=== PATIENT | female | born 1970 | race Two or more races ===

== ENCOUNTER 2018-08-13 08:56 | Outpatient (CLI) | payer OTHER | END 2018-08-13 08:58 | disposition home or self-care (01) | LOC: SONOGRAMA 08:56 | DX: E04.0 Nontoxic diffuse goiter (principal); E04.2 Nontoxic multinodular goiter ==

== ENCOUNTER 2018-11-11 13:54 | Outpatient (CLI) | payer OTHER | END 2018-11-11 14:15 | disposition home or self-care (01) | LOC: MAMO-SONO 13:54 | DX: Z12.31 Encounter for screening mammogram for malignant neoplasm of breast (principal) ==

== ENCOUNTER 2019-07-08 08:46 | Outpatient (CLI) | payer OTHER | END 2019-07-08 09:06 | disposition home or self-care (01) | LOC: MAMO-SONO 08:46 | DX: R10.84 Generalized abdominal pain (principal); N60.11 Diffuse cystic mastopathy of right breast ==

== ENCOUNTER 2020-06-01 08:52 | Outpatient (CLI) | payer OTHER | END 2020-06-01 10:23 | disposition home or self-care (01) | LOC: MAMO-SONO 08:52 | PROVIDERS: ATTEND Internal Medicine Hematology & Oncology | DX: N60.02 Solitary cyst of left breast (principal); C82.59 Diffuse follicle center lymphoma, extranodal and solid organ sites ==

== ENCOUNTER 2020-06-04 07:13 | Outpatient (CLI) | payer OTHER | END 2020-06-04 07:29 | disposition home or self-care (01) | LOC: SONOGRAMA 07:13 | PROVIDERS: ATTEND Obstetrics & Gynecology | DX: R10.2 Pelvic and perineal pain (principal) ==

== ENCOUNTER 2020-12-28 07:36 | Outpatient (CLI) | payer OTHER | END 2020-12-28 07:59 | disposition home or self-care (01) | LOC: RAD 07:36 | PROVIDERS: ATTEND Internal Medicine Endocrinology, Diabetes & Metabolism | DX: R05 Cough (principal) ==

== ENCOUNTER 2021-07-16 07:33 | Outpatient (CLI) | payer OTHER | END 2021-07-16 07:51 | disposition home or self-care (01) | LOC: MAMO-SONO 07:33 | PROVIDERS: ATTEND Internal Medicine Hematology & Oncology | DX: C82.59 Diffuse follicle center lymphoma, extranodal and solid organ sites (principal) ==

== ENCOUNTER 2021-12-17 09:13 | Outpatient (CLI) | payer OTHER | END 2021-12-17 09:15 | disposition home or self-care (01) | LOC: TOM 09:13 | PROVIDERS: ATTEND Internal Medicine Endocrinology, Diabetes & Metabolism | DX: N84.0 Polyp of corpus uteri (principal); D28.2 Benign neoplasm of uterine tubes and ligaments ==

== ENCOUNTER 2022-08-05 08:03 | Outpatient (CLI) | payer OTHER | END 2022-08-05 08:11 | disposition home or self-care (01) | LOC: MAMO-SONO 08:03 | PROVIDERS: ATTEND Internal Medicine Hematology & Oncology | DX: C82.59 Diffuse follicle center lymphoma, extranodal and solid organ sites (principal) ==

== ENCOUNTER 2022-09-09 13:00 | Outpatient (CLI) | payer OTHER | END 2022-09-09 13:11 | disposition home or self-care (01) | LOC: NUCLEAR 13:00 | PROVIDERS: ATTEND Internal Medicine Endocrinology, Diabetes & Metabolism | DX: M81.0 Age-related osteoporosis without current pathological fracture (principal); E04.9 Nontoxic goiter, unspecified ==

== ENCOUNTER 2022-11-21 07:53 | Outpatient (CLI) | payer OTHER | END 2022-11-21 08:01 | disposition home or self-care (01) | LOC: SONOGRAMA 07:53 | PROVIDERS: ATTEND Internal Medicine Endocrinology, Diabetes & Metabolism | DX: E04.1 Nontoxic single thyroid nodule (principal); E04.9 Nontoxic goiter, unspecified ==

== ENCOUNTER 2023-08-10 14:10 | Outpatient (CLI) | payer OTHER | END 2023-08-10 14:22 | disposition home or self-care (01) | LOC: MAMO-SONO 14:10 | DX: C82.59 Diffuse follicle center lymphoma, extranodal and solid organ sites (principal) ==

== ENCOUNTER → 2024-07-29 | Emergency (ER) | payer OTHER ==
[~2024-07-29] VITALS: Ht 167.6 cm; Wt 64.4 kg
[~2024-07-29] MED LIST: DEXAMETHASONE SODIUM PHOSPHATE 4 MG/ML VIAL IM STA; SYNTHROID112 MCG PO
== END | disposition home or self-care (01) ==
LOC: ER 11:01
DX: R21 Rash and other nonspecific skin eruption (principal); T78.40XA Allergy, unspecified, initial encounter

== ENCOUNTER 2024-08-22 08:08 | Outpatient (CLI) | payer OTHER ==
[~2024-08-22 08:08] MED LIST changes: -DEXAMETHASONE SODIUM PHOSPHATE 4 MG/ML VIAL IM STA
== END 2024-08-22 08:15 | disposition home or self-care (01) ==
LOC: MAMO-SONO 08:08
PROVIDERS: ATTEND Internal Medicine Hematology & Oncology
DX: C82.59 Diffuse follicle center lymphoma, extranodal and solid organ sites (principal)